=== PATIENT | male | born 1995 | race Caucasian/White ===

== ENCOUNTER 2019-11-22 17:12 | Emergency (ER) | payer SELFPAY ==
[2019-11-22 17:25] VITALS: BP 143/91; PULSE 120; TEMP 98; BMI 29.9
--- NOTE | 2019-11-22 17:25 | PDOC ---
Rapid Medical Evaluation Time Seen by Provider: 11/22/19 17:22 Medical Evaluation: 11/22/19 17:23 This patient had brief evaluation by me cc: hematuria this am HPI: Patient reports hematuria today with burning Admits to 2 bottles of vodka and cocaine use PE:NAD non tender abdomen no cva tenderness orders: urine This patient will proceed to the emergency room for further evaluation,. Discharge Disposition - Diagnosis Hematuria - Referrals - Patient Instructions - Post Discharge Activity
[2019-11-22 17:56] LABS: HYALINE CASTS 12 /lpf (0-8); URINE APPEARANCE CLEAR; URINE BACTERIA 316.3 /hpf (NEGATIVE); URINE BILIRUBIN NEGATIVE (NEGATIVE); URINE COLOR YELLOW; URINE GLUCOSE (UA) NEGATIVE (NEGATIVE); URINE KETONE TRACE (NEGATIVE); URINE LEUK ESTERASE NEGATIVE (NEGATIVE); URINE NITRITE NEGATIVE (NEGATIVE); URINE PROTEIN 1+ (NEGATIVE); URINE RBC 1 /hpf (0-4); URINE UROBILINOGEN 0.2 mg/dL (0.2-1.0); URINE WBC 4 /hpf (0-5)
== END 2019-11-22 19:00 | disposition left against medical advice (07) ==
LOC: JER 17:12
DX: R31.9 Hematuria, unspecified (principal)
CPT/HCPCS: 81003; 87086; 99281-25

== ENCOUNTER 2022-04-24 23:33 | Emergency (ER) | payer SELFPAY ==
[2022-04-24 23:43] VITALS: BP 141/89; PULSE 80; TEMP 97.5; BMI 32.2
== END 2022-04-25 05:14 | disposition home or self-care (01) ==
LOC: JER 23:33
DX: F10.920 Alcohol use, unspecified with intoxication, uncomplicated (principal)
CPT/HCPCS: 99282-25